=== PATIENT | male | born 1970 | race African-American/Black ===

== ENCOUNTER 2020-05-07 07:34 | Emergency (ER) | payer BC ==
[~2020-05-07] VITALS: Ht 182.9 cm; Wt 126.6 kg
[2020-05-07 07:44] VITALS: Ht 182.9 cm; Wt 126.6 kg
[2020-05-07 08:26] LABS: BASOPHIL % 0.8 % (0.2-1.5); CALCIUM 8.6 mg/dL (8.5-10.1); CARBON DIOXIDE 28.5 mmol/L (21-32); CREATININE SERUM 1.7 mg/dL (0.7-1.3); PLATELET COUNT 218 x10^3mcL (152-348); POTASSIUM SERUM 4.1 mmol/L (3.5-5.1); RED CELL DISTRIBUTION WIDTH 13.6 % (12.1-16.2)
[2020-05-07 08:31] LABS: ALBUMIN 3.8 g/dL (3.4-5.0); BILIRUBIN TOTAL 0.4 mg/dL (0.20-1.00)
[2020-05-07 08:36] LABS: rbc morphology (normal/abnorm) NORMAL (NORMAL)
[2020-05-07 09:17] VITALS: BP 165/75
== END 2020-05-07 09:17 | disposition home or self-care (01) ==
LOC: ED 07:34
PROVIDERS: Student in an Organized Health Care Education/Training Program
DX: S29.011A Strain of muscle and tendon of front wall of thorax, initial encounter (principal); I10 Essential (primary) hypertension; X58.XXXA Exposure to other specified factors, initial encounter; Y93.89 Activity, other specified; Y92.89 Other specified places as the place of occurrence of the external cause; Y99.8 Other external cause status
CPT/HCPCS: J1885